=== PATIENT | male | born 1955 | race Hispanic/Latino ===

== ENCOUNTER 2024-09-14 09:27 | Outpatient (CLI) | payer MEDICARE ==
[2024-09-14] MEDS ORDERED: Magnevist 469MG/ML 20 ML VIAL ONE (13:45)
== END 2024-09-14 09:28 | disposition home or self-care (01) ==
LOC: CSHMRI 09:27
PROVIDERS: ATTEND Internal Medicine Gastroenterology
DX: E83.19 Other disorders of iron metabolism (principal); R79.89 Other specified abnormal findings of blood chemistry; R93.2 Abnormal findings on diagnostic imaging of liver and biliary tract; K76.0 Fatty (change of) liver, not elsewhere classified
CPT/HCPCS: 36415; 74183; 82565